=== PATIENT | female | born 1965 | race Caucasian/White ===

== ENCOUNTER 2019-01-10 14:50 | Outpatient (CLI) | payer OTHER ==
--- NOTE | 2019-01-10 15:35 | XRAY Report ---
Reason: SCREEN FOR TB Procedure Date: 01/10/2019 Accession Number: [id number] / [id number] Procedure: XRN - Chest 2 View X-Ray CPT Code: 68900 FULL RESULT: EXAM: CHEST RADIOGRAPHY EXAM DATE: 01/10/2019 03:16 PM. CLINICAL HISTORY: Screen for tuberculosis. Positive tuberculosis skin test. COMPARISON: None. TECHNIQUE: 2 views. FINDINGS: Lungs/Pleura: No focal opacities evident. No pleural effusion. No pneumothorax. Normal volumes. Mediastinum: Heart and mediastinal contours are unremarkable. Other: None. IMPRESSION: Normal 2-view chest radiography. [facility]
== END 2019-01-10 14:51 | disposition home or self-care (01) ==
LOC: DI.N 14:50
PROVIDERS: ATTEND Physician Assistant
DX: Z11.1 Encounter for screening for respiratory tuberculosis (principal)
CPT/HCPCS: 71046